=== PATIENT | female | born 2000 | race African-American/Black ===

== ENCOUNTER 2023-12-21 17:46 | Emergency (ER) | payer MEDICAID ==
[~2023-12-21] VITALS: Ht 167.6 cm; Wt 64.0 kg
[2023-12-21 17:49] VITALS: O2SAT 98
[2023-12-21 18:40] LABS: CHLORIDE 106 mEq/L (98-107); POTASSIUM 3.8 mEq/L (3.5-5.1); SODIUM 138 mEq/L (136-145)
[2023-12-21 18:41] LABS: CALCIUM 10.1 mg/dL (8.7-10.4); CARBON DIOXIDE 26 mEq/L (21-32)
[2023-12-21 18:44] LABS: BASOPHILS % 0.4 % (0.0-2.0); EOSINOPHILS % 0.7 % (0.0-5.0); HEMOGLOBIN. 12.2 g/dL (12.0-16.0); LYMPHOCYTES % 21.5 % (20.0-50.0); MEAN CORPUSCULAR HEMOGLOBIN 26.5 pg (28.0-32.0); MEAN CORPUSCULAR HGB CONC 32.2 g/dL (31.0-37.0); MEAN CORPUSCULAR VOLUME 82.3 fL (81.0-99.0); MEAN PLATELET VOLUME 7.6 fl (7.4-10.4); MONOCYTES % 9.9 % (2.0-8.0); NEUTROPHILS % 67.5 % (40.0-76.0); PLATELET 297 x1000/uL (130-400); RED BLOOD CELL COUNT 4.62 mill/uL (4.2-5.4); RED CELL DISTRIBUTION WIDTH 14.5 % (11.6-14.6); WHITE BLOOD COUNT 6.5 x1000/uL (4.5-11.0)
[2023-12-21 18:46] LABS: CREATININE 0.7 mg/dL (0.6-1.0); GLUCOSE 98 mg/dL (70-105); UREA NITROGEN BLOOD 13 mg/dL (9-23)
[2023-12-21 18:48] LABS: ACETAMINOPHEN < 2 ug/mL (10-30); ETHANOL BLOOD < 10 mg/dL (<10)
[2023-12-21 18:56] LABS: HCG SCREEN NEGATIVE
[2023-12-21 19:13] LABS: CLARITY URINE CLEAR (CLEAR); COLOR URINE YELLOW (YELLOW); GLUCOSE URINE NEGATIVE (NEGATIVE); KETONES URINE NEGATIVE (NEGATIVE); LEUKOCYTE ESTERASE URINE NEGATIVE (NEGATIVE); NITRITE URINE NEGATIVE (NEGATIVE); OCCULT BLOOD URINE NEGATIVE (NEGATIVE); PROTEIN URINE NEGATIVE (NEGATIVE); SPECIFIC GRAVITY URINE 1.018 (1.005-1.030)
[2023-12-21 19:21] LABS: *AMPHETAMINES SCREEN URINE NEGATIVE (NEGATIVE); *BENZODIAZEPINES SCREEN URINE NEGATIVE (NEGATIVE)
[2023-12-21 19:22] LABS: *BARBITURATES SCREEN URINE NEGATIVE (NEGATIVE); *COCAINE SCREEN URINE NEGATIVE (NEGATIVE); CANNABINOID URINE SCREEN NEGATIVE (NEGATIVE); METHADONE URINE SCREEN NEGATIVE (NEGATIVE); OPIATES URINE SCREEN NEGATIVE (NEGATIVE); PHENCYCLIDINE URINE SCREEN NEGATIVE (NEGATIVE)
[2023-12-21 19:31] LABS: ECSTASY MDMA SCREEN URINE NEGATIVE (NEGATIVE)
[2023-12-21] MEDS: LORAZEPAM 2MG/ML INJ IM ONE (21:14)
[2023-12-21] MEDS: HALOPERIDOL LACTATE 5MG/ML VIAL IM ONE (21:14)
[2023-12-22] MEDS: RISPERIDONE 0.5MG TABLET PO SCH (14:48)
[2023-12-24 14:12] VITALS: BP 128/77; PULSE 77; RESP 20; TEMP 98.6
== END 2023-12-24 11:30 ==
LOC: ER 17:46
DX: R45.1 Restlessness and agitation (principal); F43.10 Post-traumatic stress disorder, unspecified
CPT/HCPCS: 80305; 80048; 81003; 80307; 80329; 80320; 84703; 85025; 87804 ×2; 36415; 96372; 99285; 87426; J1630; J2060; Z7610 ×3; G0480